=== PATIENT | female | born 1990 | race Caucasian/White ===

== ENCOUNTER 2019-04-05 13:48 | Emergency (ER) | payer MEDICAID ==
[~2019-04-05] VITALS: Ht 157.5 cm; Wt 91.2 kg
[2019-04-05 13:48] VITALS: BP_SYST 132
--- NOTE | 2019-04-05 13:55 | NUR ---
Patient to ER bed 6 to gown for evaluation. Side rails up. Report given to Katharina HIDALGO.
--- NOTE | 2019-04-05 14:05 | NUR ---
Patient pesented to ER with C/o foreign body in throat. Patient alert and oriented, ambulatory to ER, respirations equal bilat, skin pink. Patient states she has a sensation of something stuck in throat x3 days since Wednesday. paitient denies pain, denies N/V/D, patient report decrease in appetite.
--- NOTE | 2019-04-05 14:08 | NUR ---
MARCEL Hernandes at bedside examining patient.
[2019-04-05] MEDS ORDERED: MAG HYDROX/AL HYDROX/SIMETH 30 ML, DICYCLOMINE HCL 20 MG, LIDOCAINE VISCOUS 2% 15ML (PO... PO ONE ×3 (14:15)
--- NOTE | 2019-04-05 14:25 | NUR ---
Patient to radiology with radiology staff
--- NOTE | 2019-04-05 14:30 | NUR ---
Patient to ER room 6 from Radiology
[2019-04-05 15:28] VITALS: BP_SYST 130
--- NOTE | 2019-04-05 15:28 | NUR ---
Patient given written and verbal discharge instructions and verbalizes understanding. ER MD discussed with patient the results and treatment provided. Patient in stable condition. ID arm band removed. Rx of Prednisone given. Patient educated on pain management and to follow up with PMD. Pain Scale 0/10 . Opportunity for questions provided and answered. Medication side effect fact sheet provided.
== END 2019-04-05 15:28 | disposition home or self-care (01) ==
LOC: SED 13:48
DX: F45.8 Other somatoform disorders (principal); R03.0 Elevated blood-pressure reading, without diagnosis of hypertension; Z88.1 Allergy status to other antibiotic agents
CPT/HCPCS: 70360-TC; 99283; J2001